=== PATIENT | male | born 1990 | race Caucasian/White ===

== ENCOUNTER 2022-07-15 16:11 | Emergency (ER) | payer MEDICAID ==
[~2022-07-15] VITALS: Ht 177.8 cm; Wt 86.3 kg
[2022-07-15 16:23] VITALS: BP 134/117
[2022-07-15 16:31] VITALS: BP 109/82
[2022-07-15 16:45] VITALS: BP 122/83
[2022-07-15 17:01] VITALS: BP 120/77
[2022-07-15] MEDS ORDERED: TRAMADOL HYDROC50 M1 PO (17:48)
[2022-07-15] MEDS ORDERED: IBUPROFEN600 MG PO (17:48)
[2022-07-15] MEDS ORDERED: OMNICEF300 M1 PO (17:48)
[2022-07-15 17:57] VITALS: BP 120/77
[2022-07-16] MEDS ORDERED: OMNICEF300 M1 PO (15:37)
== END 2022-07-15 18:13 | disposition home or self-care (01) ==
LOC: ED 16:11
DX: S61.011A Laceration without foreign body of right thumb without damage to nail, initial encounter (principal); W31.2XXA Contact with powered woodworking and forming machines, initial encounter; Y92.009 Unspecified place in unspecified non-institutional (private) residence as the place of occurrence of the external cause